=== PATIENT | female | born 1965 | race Two or more races ===

== ENCOUNTER 2017-09-23 20:40 | Emergency (ER) | payer OTHER, SELFPAY ==
[2017-09-23 20:42] VITALS: BP 132/95; PULSE 68; RESP 18; TEMP 36.3; O2SAT 97; BMI 26.0
--- NOTE | 2017-09-23 21:21 | RAD_ITS ---
STUDY: X-RAY CHEST REASON FOR EXAM: Female, 52 years old. Chest tightness and anxiety TECHNIQUE: Single view of the chest was obtained COMPARISON: None. FINDINGS: No lung consolidation, pleural effusion or pneumothorax. Cardiac size is within normal limits. Osseous structures demonstrate no acute abnormalities. IMPRESSION: No evidence for focal airspace disease. Electronically Signed: Manuel Loredo, at 21:37 EDT Tel , Service support , RAD/Chest 1 View (Portable)
--- NOTE | 2017-09-23 21:22 | EKG12_ITS ---
Test Reason : CHEST TIGHTNESS Blood Pressure : / mmHG Vent. Rate : 071 BPM Atrial Rate : 071 BPM P-R Int : 140 ms QRS Dur : 074 ms QT Int : 398 ms P-R-T Axes : 043 029 050 degrees QTc Int : 432 ms Normal sinus rhythm Normal ECG Confirmed by GORDON VÁZQUEZ, ADY ([id number]), writer editor VALDEMAR MARTINEZ ([id number]) on 09/25/2017 10:15:04 AM Referred By: KARLA Confirmed By:ADY LEYVA MD
[2017-09-23 21:44] VITALS: BP 123/78; PULSE 63; RESP 17; O2SAT 97
[2017-09-23 21:49] LABS: Absolute Lymphocyte Count 2.22 X10^3/ul (0.83-4.51); Basophil# 0.06 X10^3/uL; Basophil% 0.8 % (0-1); Eosinophil# 0.11 X10^3/uL; Eosinophils% 1.6 % (0-5); Hematocrit 37.5 % (37-47); Hemoglobin 12.8 g/dl (12.0-15.0); Lymphocyte # 2.22 X10^3/ul (4.0); Lymphocyte % 31.4 % (19-41); Mean Corp Hgb Conc 34.1 g/gl (32-36); Mean Corpuscular Hgb 30.2 pg (27.0-32.0); Mean Corpuscular Volume 88.4 fL (81-99); Monocyte# 0.68 X10^3/uL; Monocyte% 9.6 % (0-10); Neutrophil # 3.98 X10^3/uL (2.7-7.7); Neutrophil % 56.3 % (47-70); Platelet Count 153 K/mm3 (150-450); RBC Distribution Width CV 13.1 % (11.6-14.6); RBC Distribution Width SD 41.9 fl (35.1-43.9); Red Blood Count 4.24 M/mm3 (4.2-5.4); White Blood Count 7.1 K/mm3 (4.4-11.0)
[2017-09-23 21:50] LABS: POSITIVE COUNT NO; POSITIVE DIFFERENTIAL NO; POSITIVE MORPHOLOGY NO
[2017-09-23] MEDS: 0.9% Normal Saline 1,000 ML 150 ML IV (21:51)
[2017-09-23] MEDS: hydrOXYzine PAM 25 MG Capsule PO ×4 (21:52→23:09)
[2017-09-23 22:09] LABS: AST(SGOT) 29 U/L (15-37); Alanine Aminotransfer ALT/SGPT 42 U/L (13-56); Albumin, Serum 3.5 g/dL (3.2-5.0); Alkaline Phosphatase 87 U/L (45-117); Anion Gap 11 (5-15); BUN 10 mg/dL (7-18); BUN/Creat Ratio 13.6 RATIO (10-20); Bilirubin, Direct 0.19 mg/dL (0.00-0.30); Calcium,Total 8.6 mg/dL (8.5-10.1); Chloride 101 mmol/L (98-107); Creatinine, Serum 0.74 mg/dL (0.55-1.02); EST Glomerular Filtration Rate 88 mL/min (>60); Est Glom Filt Rate - Afr Amer 106 mL/min (>60); Estimated Creatinine Clearance 67.11 ml/min; Globulin 4.5 g/dL (2.2-4.2); Glucose 83 mg/dL (74-106); Lipase 83 U/L (73-393); Potassium 3.5 mmol/L (3.5-5.1); Sodium Level 135 mmol/L (136-145)
[2017-09-23 22:15] VITALS: BP 127/102; PULSE 64; O2SAT 98
--- NOTE | 2017-09-23 22:50 | ED.VISSUMM ---
- ER Visit Summary Date of Service: 09/23/17 Chief Complaint: Anxiety, chest pain History of Present Illness: The patient is a 52 F reports worsening anxiety recently. This is been ongoing for several weeks. She states she is currently going through divorce which is making her symptoms worse. Her primary care physician through the [place] has her on clonidine, but she states this is not helping. She reports chest tightness and upper abdominal pain all day today. She has no significant cardiac history. Physical Examination: Vital signs unremarkable. Patient sitting upright in bed. Head neck examination is unremarkable. Heart is regular rate and rhythm. Lung sounds are clear. There is no reproducible chest wall tenderness. Abdomen is soft nontender. Lower extremity examination was no calf tenderness or edema. Test Results: EKG is sinus at 71 with no acute ischemia. Portable chest x-ray shows no focal disease. CBC and chemistry studies normal. LFTs and lipase are normal. Troponin is negative. Emergency Department Course and Treatment: Patient was observed on manager generation without significant arrhythmia. She was given p.o. Vistaril. On repeat evaluation patient states that she is much more relaxed and does feel better. She will be discharged with a prescription for Vistaril and advised to follow-up with her doctor at [facility] as soon as possible. Treatment Plan: [] Disposition: Discharge Impression: Anxiety, improved This note was generated with [employer] dictation software. It may contain incorrect words, spelling, and punctuation that were not noted in review of the chart prior to signing ED Disposition - Plan for ED Patient: Chief Complaint: Chest Pain Referrals: [facility] [Primary Care Provider] -
--- NOTE | 2017-09-23 22:51 | ED.DEP ---
ED Disposition - Plan for ED Patient: Disposition: Home or Assisted Living Chief Complaint: Chest Pain Instructions: ED Stress React Prescriptions: hydrOXYzine pamoate capsule [Vistaril] 25 mg PO TID PRN PRN #20 capsule PRN Reason: Anxiety [facility] [facility] [[facility] [place]] - As soon as possible
[2017-09-23 23:09] VITALS: PULSE 65; RESP 18; O2SAT 98
== END 2017-09-23 23:10 | disposition home or self-care (01) ==
PROVIDERS: Emergency Provider Emergency Medicine
DX: F41.9 Anxiety disorder, unspecified (principal); R07.9 Chest pain, unspecified; R10.10 Upper abdominal pain, unspecified
CPT/HCPCS: 71045; 80048; 80076; 83690; 84484; 85025; 93005; 96360; 99285; J7030; A4216

== ENCOUNTER 2017-12-19 15:23 | Emergency (ER) | payer OTHER, SELFPAY ==
[2017-12-19 15:24] VITALS: BP 148/86; PULSE 75; RESP 14; TEMP 36.6; O2SAT 98; BMI 27.4
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
[2017-12-19 16:45] VITALS: BP 152/96
== END 2017-12-19 16:45 | disposition home or self-care (01) ==
PROVIDERS: Emergency Provider Emergency Medicine
DX: R42 Dizziness and giddiness (principal); S13.4XXA Sprain of ligaments of cervical spine, initial encounter; V89.2XXA Person injured in unspecified motor-vehicle accident, traffic, initial encounter; Y93.9 Activity, unspecified; Y92.9 Unspecified place or not applicable; Y99.9 Unspecified external cause status; I10 Essential (primary) hypertension
CPT/HCPCS: 70450; 99282

== ENCOUNTER 2019-01-07 06:32 | Emergency (ER) | payer OTHER, SELFPAY ==
[2018-03-11 09:53] VITALS: BMI 27.4
[2019-01-07 06:33] VITALS: BP 161/97; PULSE 100; RESP 18; TEMP 37; O2SAT 98; BMI 26.7
--- NOTE | 2019-01-07 07:02 | ED.DCSUM_ITS ---
History of Present Illness Chief Complaint: Anxiety Informant: Patient Onset: Weeks Context: Gradual Onset Conflict: Family, Financial Timing: Continuous, Waxes and wanes Current Severity: Moderate Maximum Severity: Severe Worsened by: Situational factors, - - Problems with . . lives in [place]. Has been diagnosed with cancer and refusing treatment. Relieved by: Nothing Associated Symptoms: Change in Eating, Change in sleeping. Negative for: Depressed, Decreased Interest, Guilt, Decreased Concentration, Hopelessness, Suicidal Thoughts, Easily distracted, Grandiosity, Flight of Ideas, Increased activity, Pressured Speech, Agitated, Angry, Hostile, Threatening, Confusion, Paranoia, Visual Hallucinations, Auditory Hallucinations Specific plan (suicidal thought): None Narrative: Patient is a middle-age woman who has been from her for greater than a year. He was diagnosed with skin cancer. He is refusing treatment. He apparently is not doing well. This past summer for 6 weeks she went to [place] to see him, discuss treatment options etc. She is seen by a physician at the [facility] in [place] for anxiety. She is treated with hydroxyzine, only. She has no suicidal thoughts. She does not feel depressed. She has been hospitalized for psychiatric reasons. She states she is having difficulty sleeping. She states she feels anxious. Her job limit s her availability to see her doctor. She states she drove herself to the emergency department. She lives in [place] because she has 2 daughters/relatives that live in the area. She reports she has 2 sons and they live in [place]. One is having a child and she is looking forward to visiting him. Prior similar symptoms: Yes Recent Illness/Hospitalization: No - Past Medical History (1) No significant past medical history Status: Acute Past Medical History - Allergies and Home Meds Allergies/Adverse Reactions: Allergies No Known Allergies Allergy (Verified 12/19/17 15:25) Primary Care Physician: [facility] [Primary Care Provider] - Prior records reviewed: Yes Past Medical History: None Surgical History: noncontributory Lives: - - Smoking Status: Never smoker Alcohol: Rare Drugs: None Review of Systems General: Denies: Chills, Fever, Malaise, Subjective, Sweats Eyes: Denies: Visual changes - bilaterally, Blurred Vision - bilaterally Cardiovascular: Denies: Chest pain, Palpitations Respiratory: Denies: Dyspnea, Cough, Sputum Gastrointestinal: Denies: Abdominal pain, Nausea, Vomiting Genitourinary: Denies: Dysuria, Hematuria, Frequency Psych: Reports: Depression, Anxiety. Denies: Suicidal thoughts, Suicidal ideations Physical Exam Vital Signs/Narrative: Vital Signs Temp Pulse Resp BP Pulse Ox 01/07/19 06:33 98.6 F 100 18 161/97 H 98 Inital Vital Signs reviewed: Yes General: Well nourished, Well developed, - - Patient appears tired Head: Normocephalic, Atraumatic Eyes: Perrl, EOMI. Negative for: Pale conjunctiva, Scleral icterus Neck: Supple, Nontender, No JVD Cardiovascular: Regular rate, Regular rhythm, No murmurs, Normal S1, Normal S2 Respiratory: No distress, CTA bilaterally, Chest nontender Skin: Normal color, No rash Neurological: Alert, Oriented x3, Cranial nerves II-XII grossly intact, Normal Strength, Normal Sensation Psych: Normal Speech Pattern, No suicidal or homicidal ideation, Normal Stable Appropriate Affect, Good Insight, Good Judgement, Flat Affect. Negative for: Logical sequential goal directed thoughts, Normal Appearance, Depressed, Irritable, Euphoric, Labile, Blunted Affect, Restricted Affect, Pressured Speech, Poverty of Speech, Flight of Ideas, Incoherent thoughts, Suicidal thoughts, Homicidal thoughts, Hallucinations, Delusions, Paranoid Ideation Diagnostic/Tx/Re-eval Past records were reviewed. Minimal visits. No visits for psychiatric reasons. Based on patient's history and lack of suicidal ideation or thoughts will treat with short course of Ativan. She was instructed the amount of medication I am able to give her is limited. She states she has been trying to contact her physician at the [facility] and will call at 8 AM. ED Disposition - Plan for ED Patient: Disposition: Home or Assisted Living Diagnosis: Adjustment reaction with anxiety and depression Instructions: Anxiety Reaction Prescriptions: Lorazepam [Ativan] 0.5 mg PO TID PRN 5 Days #15 tab PRN Reason: anxiety/stress Prescription Printed [facility] [facility] [[facility] [place]] - As soon as possible
== END 2019-01-07 07:23 | disposition home or self-care (01) ==
PROVIDERS: Emergency Provider Emergency Medicine
DX: F43.23 Adjustment disorder with mixed anxiety and depressed mood (principal); Z79.899 Other long term (current) drug therapy
CPT/HCPCS: 99282; A4216

== ENCOUNTER 2020-09-05 12:55 | Inpatient (IN) | payer OTHER, SELFPAY ==
[2020-09-05 12:56] VITALS: BP 135/90; RESP 18; TEMP 36.2; O2SAT 97; BMI 27.1
--- NOTE | 2020-09-05 13:13 | US_ITS ---
HISTORY: Epigastric pain TECHNIQUE: Rodriguez scale and color Doppler imaging was performed of the right upper quadrant. COMPARISON: None FINDINGS: # of images incl. paperwork: 71 LIVER: Normal size and echotexture without focal parenchymal lesion. Normal portal venous blood flow. GALLBLADDER: Unremarkable. BILE DUCTS: The extrahepatic common duct measures 3 mm in AP diameter, which is within normal limits for the patient's age. PANCREAS: No acute abnormality of the visualized portion. RIGHT KIDNEY: 10.8 cm long axis. No hydronephrosis. US/Gallbladder IMPRESSION: No sonographic evidence for an acute abnormality in the right upper quadrant. at 1542 Reported and signed by: Ray Darden MD Electronically Signed: Ray Darden MD at 15:41 EDT Tel , Service support ,
[2020-09-05] MEDS: Metoclopramide 10 MG/2 ML Vial IV (13:38)
[2020-09-05] MEDS: Mag Hydrox/Al Hydrox/Simeth 30 ML UDC PO (13:41)
[2020-09-05 13:47] LABS: Absolute Lymphocyte Count 0.73 X10^3/uL (0.83-4.51); Absolute Neutrophil Count 8.5 X10^3/uL (2.0-7.7); Basophil# 0.05 X10^3/uL; Basophil% 0.4 % (0-1); Eosinophil# 1.14 X10^3/uL; Hematocrit 41.9 % (37-47); Hemoglobin 14.2 g/dL (12.0-15.0); Lymphocyte # 0.73 X10^3/ul (0.83-4.51); Lymphocyte % 6.4 % (19-41); Mean Corp Hgb Conc 33.9 g/dL (32-36); Mean Corpuscular Hgb 30.9 pg (27.0-32.0); Mean Corpuscular Volume 91.1 fL (81-99); Mean Platelet Vol. 10.3 fl (6.2-12.0); Monocyte# 0.95 X10^3/uL; Monocyte% 8.3 % (0-10); NRBC Flagged by Analyzer 0 % (0-5); Neutrophil # 8.49 X10^3/uL (2.7-7.7); Neutrophil % 74.5 % (47-70); POSITIVE MORPHOLOGY YES; Platelet Count 165 K/mm3 (150-450); RBC Distribution Width CV 13.2 % (11.6-14.6); RBC Distribution Width SD 43.9 fl (35.1-43.9); White Blood Count 11.4 K/mm3 (4.4-11.0)
[2020-09-05 13:53] LABS: Differential Indicated SCAN CRITERIA MET
[2020-09-05 14:08] LABS: ALB/GLOB Ratio 0.8 RATIO (0.9-2.4); AST(SGOT) 46 U/L (15-37); Alanine Aminotransfer ALT/SGPT 31 U/L (13-56); Albumin, Serum 3.9 g/dL (3.2-5.0); Alkaline Phosphatase 79 U/L (45-117); Anion Gap 15 (5-15); BUN 10 mg/dL (7-18); BUN/Creat Ratio 9.3 RATIO (10-20); Chloride 98 mmol/L (98-107); Creatinine, Serum 1.08 mg/dL (0.55-1.02); EST Glomerular Filtration Rate 56 mL/min (>60); Est Glom Filt Rate - Afr Amer 68 mL/min (>60); Estimated Creatinine Clearance 44.41 ml/min; Globulin 4.8 g/dL (2.2-4.2); Glucose 199 mg/dL (74-106); Lipase 4411 U/L (73-393); Potassium 4.9 mmol/L (3.5-5.1); Protein, Total 8.7 g/dL (6.4-8.2); Sodium Level 134 mmol/L (136-145)
[2020-09-05] MEDS: HYDROmorphone 0.5 MG/0.5 ML SYRINGE IV ×4 (15:06→23:32)
--- NOTE | 2020-09-05 15:11 | CT_ITS ---
STUDY: CT ABDOMEN AND PELVIS WITH CONTRAST REASON FOR EXAM: Female, 55 years old. Pancreatitis RADIATION DOSAGE (If Supplied By Facility): CTDIvol = ( 11.69 ) mGy, DLP = ( 707.34 ) mGycm TECHNIQUE: Transaxial images were obtained from the dome of the diaphragm to the symphysis pubis without oral contrast. was administered. Sagittal and coronal images were reconstructed. Individualized dose optimization techniques were used for this CT. COMPARISON: None. FINDINGS: The visualized lung bases are unremarkable. The visualized portions of the heart are within normal limits. Normal liver. Normal gallbladder and extrahepatic biliary system. Normal spleen. There is diffuse enlargement of the pancreas with mirella-pancreatic edema suggesting acute pancreatitis. No focal abscess. Normal bilateral adrenal glands. Normal right kidney. Normal left kidney. Normal visualized stomach. Mild wall thickening of the proximal duodenum with adjacent stranding could represent primary or secondary duodenitis. Normal colon. The appendix is visualized and appears normal. Normal abdominal aorta. Normal inferior vena cava. Normal retroperitoneum. Normal urinary bladder. Normal visualized uterus. Trace pelvic free fluid. Normal abdominal wall. Normal osseous structures. CT/Abdomen/Pelvis W IV Cont ONLY IMPRESSION: 1. Diffuse acute pancreatitis. No focal abscess or fluid collection. Primary or secondary duodenitis. Electronically Signed: Liam Evans MD ([place]) at 17:16 EDT , Service support ,
--- NOTE | 2020-09-05 15:14 | ED.VIS.GI ---
HPI HPI - GI History of Present Illness Chief Complaint: Abd Pain Narrative Narrative: Patient presenting for evaluation secondary to abdominal pain. Patient states that she developed abdominal pain earlier today, its been associated with nausea and vomiting. Patient reports that she feels that this could be associated with her anxiety, but does not feel that there is been anything in particular that caused her anxiety to spike. She is on as needed hydroxyzine which has not seemed to be helping. States that she has been having episodes of emesis and has been having some difficulty with keeping down fluids. Emesis is nonbloody nonbilious she denies any diarrhea or constipation associated with this. She denies any history of abdominal surgeries in the past. No fevers. No sick contacts. Review of systems otherwise negative. PFSH PFS Medical History Anxiety Home Medications hydroxyzine pamoate 50 mg PO DAILY PRN PRN 01/07/19 [History Last Taken 01/07/19] omeprazole 20 mg PO BID 09/05/20 [History Last Taken 09/05/20] Allergy/AdvReac Type Severity Reaction Status Date / Time No Known Allergies Allergy Verified 09/05/20 12:56 Surgical History H/O tubal ligation Social History Smoking Status: Never smoker ROS ROS ED Constitutional Constitutional ED: Denies chills or fever(s) ENT ENT ED: Denies sore throat Cardiovascular Cardiovascular: Denies chest pain Respiratory/Chest Respiratory/Chest: Denies cough or dyspnea Gastrointestinal Gastrointestinal: Reports abdominal pain, nausea and vomiting Genitourinary Genitourinary ED: Denies dysuria, hematuria or urinary frequency Musculoskeletal Musculoskeletal: Denies myalgias Integumentary Denies rash Neurologic Neurologic: Denies paresthesias or weakness Psychiatric Psychiatric: Reports anxiety Endocrine Endocrinology: Denies polyuria Hematologic/Lymphatic Hematologic/Lymphatic: Denies easy bleeding or easy bruising Allergic/Immunologic Allergic/Immunologic ED: Denies urticaria EXAM Physical Exam Const Vital Signs: 09/05/20 12:56 Temperature 97.2 F L Temperature Source Temporal Respiratory Rate 88 H Blood Pressure 135/9 H Blood Pressure Mean 51 Pulse Ox 97 Oxygen Delivery Method Room Air Positive well nourished and well developed General Appearance ED: well developed and NAD HEENT normocephalic and atraumatic Eyes EOMs intact bilaterally General Eye ED: Negative for pale conjunctiva or scleral icterus Neck no lymphadenopathy and supple Resp normal respiratory effort and clear to auscultation bilaterally Cardio regular rate, regular rhythm, no murmurs and peripheral pulses 2+ throughout GI no masses Palpation: soft and tender epigastric and RUQ; Negative for guarding, rigid or rebound tenderness present Back/Spine no CVA tenderness Extremity full ROM General Extremety ED: Negative for edema General Extremity: Negative for edema Neuro moves all extremities and no sensory deficits noted Sensorium / Orientation: alert, oriented to person, oriented to place and oriented to time Motor Exam: strength 5/5 throughout Psych mental status grossly normal Skin Rashes: no rashes MDM MDM MDM Narrative Medical decision making narrative: Patient presented for evaluation secondary to abdominal pain nausea and vomiting. Patient attributed this mainly to her anxiety but she does have reproducible tenderness in her epigastrium and right upper quadrant, work-up was obtained. Patient was given a GI cocktail initially as well as fluids and Zofran. Work-up shows the patient have a modest leukocytosis at 11.4, chemistry panel however shows the patient to have a slight elevation of her AST and an elevation of her lipase at 4400. Right upper quadrant ultrasound was performed, by my personal review does not seem to show evidence of cholecystitis or pathologic dilation of the patient's gallbladder duct. Patient was started on fluid resuscitation and IV pain medication. Patient will be admitted under the hospitalist. Lab Data Labs: Laboratory Results - last 24 hr 09/05/20 09/05/20 13:42 13:42 WBC 11.4 H RBC 4.60 Hgb 14.2 Hct 41.9 MCV 91.1 MCH 30.9 MCHC 33.9 RDW Std Deviation 43.9 RDW Coeff of [place] 13.2 Plt Count 165 MPV 10.3 Immature Gran % (Auto) 0.400 Neut % (Auto) 74.5 H Lymph % (Auto) 6.4 L Carbon % (Auto) 8.3 Eos % (Auto) 10.0 H Baso % (Auto) 0.4 Absolute Neuts (auto) 8.5 H Absolute Lymphs (auto) 0.73 L Nucleated RBC % 0 Sodium 134 L Potassium 4.9 Chloride 98 Carbon Dioxide 21.0 Anion Gap 15 BUN 10 Creatinine 1.08 H Estim Creat Clear Calc 44.41 Est GFR (MDRD) Af Amer 68 Est GFR (MDRD) Non-Af 56 L BUN/Creatinine Ratio 9.3 L Glucose 199 H Calcium 9.0 Total Bilirubin 0.80 AST 46 H ALT 31 Alkaline Phosphatase 79 Total Protein 8.7 H Albumin 3.9 Globulin 4.8 H Albumin/Globulin Ratio 0.8 L Lipase 4411 H Discharge Plan Triage Chief Complaint: Abd Pain ED Provider: Jonathon Wolf Dx/Rx/DC Orders Clinical Impression: Acute pancreatitis Primary Care Provider[facility] Disposition Disposition: Acute Care [facility]
[2020-09-05] MEDS: 0.9% Normal Saline 1,000 ML 250 ML IV (15:26)
--- NOTE | 2020-09-05 15:43 | PCM.HP.STD ---
Documented by User: Jessica Callaway NP, RECONDITIONER-C 09/05/20 16:14 HPI - General General Date of Admission: 09/05/20 Date of Service: 09/05/20 Chief Complaint: Nausea, vomiting, abdominal pain HPI Narrative JESUS GAMEZ, is a 55 F who presents to the emergency room due to nausea, vomiting and abdominal pain. Patient states she has anxiety at baseline and last night had significant anxiety and caused her to worry even more, she then developed nausea and vomiting. Patient states she has had similar episodes in the past with GI symptoms related to anxiety. She complains of epigastric and right-sided abdominal pain which she has not had prior. She denies alcohol use. Denies other recent symptoms. She has a past medical history of anxiety, GERD. [facility] Medical History Anxiety Home Medications hydroxyzine pamoate 25 mg PO BID 01/07/19 [History Last Taken 09/05/20] melatonin 10 mg PO QHS 09/05/20 [History Last Taken Unknown] omeprazole 20 mg PO BID 09/05/20 [History Last Taken 09/05/20] Allergy/AdvReac Type Severity Reaction Status Date / Time No Known Allergies Allergy Verified 09/05/20 12:56 Family History (Updated 09/05/20 @ 15:51 by Jessica Callaway NP, RECONDITIONER-C) Father Alcohol abuse Mother Cancer Uterine Surgical History H/O tubal ligation Social History (Updated 09/05/20 @ 15:52 by Jessica Callaway NP, RECONDITIONER-C) Smoking Status: Never smoker alcohol intake: former substance use type: does not use ROS Constitutional Constitutional: Denies change in weight, chills, fatigue, fever(s) or weakness Cardiovascular Cardiovascular: Denies chest pain, edema, lightheadedness, palpitations or syncope Respiratory/Chest Respiratory/Chest: Denies cough, dyspnea, productive cough, shortness of breath at rest, shortness of breath with exertion or wheezing Gastrointestinal Gastrointestinal: Reports abdominal pain, nausea and vomiting; Denies constipation or diarrhea Genitourinary Genitourinary: Denies burning urination, difficulty urinating, dysuria, hematuria, urinary frequency, urinary incontinence or urinary urgency Musculoskeletal Musculoskeletal: Denies back pain, joint pain or muscle weakness Integumentary Integumentary: Denies erythema, lesions, rash or wounds Neurologic Neurologic: Denies abnormal speech, confusion, dizziness, focal weakness, numbness, paresthesias, seizure-like activity or syncope Psychiatric Psychiatric: Reports anxiety; Denies depression Hematologic/Lymphatic Hematologic/Lymphatic: Denies anemia, easy bleeding or easy bruising Allergic/Immunologic Allergic/Immunologic: Denies hives or asthma Vital Signs Vital Signs Vital Signs: 09/05/20 12:56 Temperature 97.2 F L Temperature Source Temporal Respiratory Rate 88 H Blood Pressure 135/9 H Blood Pressure Mean 51 Pulse Ox 97 Oxygen Delivery Method Room Air Weight Weight: 143 lb 8.335 oz Body Mass Index (BMI) 27.1 Physical Exam Const alert, oriented x3 and no apparent distress Orientation / Consciousness: awake, oriented to person, oriented to place and oriented to time HEENT normocephalic and moist oral mucous membranes Eyes PERRL, EOMs intact bilaterally and conjunctivae normal Neck no lymphadenopathy Resp normal respiratory effort and clear to auscultation bilaterally Cardio regular rate, regular rhythm and no murmurs Peripheral Pulses: pulses 2+ throughout GI normal to inspection, nondistended, normoactive bowel sounds and non-distended Palpation: tender epigastric and RUQ Extremity normal to inspection Skin no rashes or lesions noted Lesions: no lesions Rashes: no rashes Trauma: no lacerations or abrasions Neuro CN's II-XII intact bilaterally, no focal motor deficits, no sensory deficits noted and deep tendon reflexes 2+ bilaterally Psych mental status grossly normal and affect normal Results Lab / Micro Data Result Diagrams: 09/05/20 13:42 09/05/20 13:42 Labs: Laboratory Results - last 24 hr 09/05/20 13:42: WBC 11.4 H, RBC 4.60, Hgb 14.2, Hct 41.9, MCV 91.1, MCH 30.9, MCHC 33.9, RDW Std Deviation 43.9, RDW Coeff of [place] 13.2, Plt Count 165, MPV 10.3, Immature Gran % (Auto) 0.400, Neut % (Auto) 74.5 H, Lymph % (Auto) 6.4 L, Rowan % (Auto) 8.3, Eos % (Auto) 10.0 H, Baso % (Auto) 0.4, Absolute Neuts (auto) 8.5 H, Absolute Lymphs (auto) 0.73 L, Nucleated RBC % 0 09/05/20 13:42: Sodium 134 L, Potassium 4.9, Chloride 98, Carbon Dioxide 21.0, Anion Gap 15, BUN 10, Creatinine 1.08 H, Estim Creat Clear Calc 44.41, Est GFR (MDRD) Af Amer 68, Est GFR (MDRD) Non-Af 56 L, BUN/Creatinine Ratio 9.3 L, Glucose 199 H, Calcium 9.0, Total Bilirubin 0.80, AST 46 H, ALT 31, Alkaline Phosphatase 79, Total Protein 8.7 H, Albumin 3.9, Globulin 4.8 H, Albumin/Globulin Ratio 0.8 L, Lipase 4411 H Assessment & Plan Assessment/Plan (1) Acute pancreatitis: PLAN: 1. Acute pancreatitis-lipase greater than 4000. Gallbladder ultrasound unremarkable. CT of abdomen pending. IV fluids. NPO. As needed pain regimen. Check lipid profile. 2. Anxiety-on hydroxyzine PRN. 3. GERD-continue ppi. DVT prophylaxis- SCDs This patient was seen by Jessica Callaway NP-C under the supervision of Dr. Guan. Documented by User: Dr. Monica Guan DO 09/05/20 18:01 HPI - General General Date of Admission: 09/05/20 Date of Service: 09/05/20 Chief Complaint: Abdominal pain HPI Narrative This patient was seen in conjunction with Jessica Callaway NP [facility] Medical History Anxiety Home Medications hydroxyzine pamoate 25 mg PO BID 01/07/19 [History Last Taken 09/05/20] melatonin 10 mg PO QHS 09/05/20 [History Last Taken Unknown] omeprazole 20 mg PO BID 09/05/20 [History Last Taken 09/05/20] Allergy/AdvReac Type Severity Reaction Status Date / Time No Known Allergies Allergy Verified 09/05/20 12:56 Family History (Updated 09/05/20 @ 15:51 by Jessica Callaway RECONDITIONER, RECONDITIONER-C) Father Alcohol abuse Mother Cancer Uterine Surgical History H/O tubal ligation Social History (Updated 09/05/20 @ 15:52 by Jessica Callaway NP, RECONDITIONER-C) Smoking Status: Never smoker alcohol intake: former substance use type: does not use ROS Constitutional Constitutional: Reports anorexia; Denies change in weight, chills, fatigue, fever(s), malaise, night sweats, weakness or other Eyes Eyes: Denies blurry vision, change in eye color, change in vision, discharge from eye(s), double vision, erythema, eye pain, loss of vision or other Cardiovascular Cardiovascular: Denies chest pain, claudication, dyspnea on exertion, edema, lightheadedness, orthopnea, palpitations, paroxysmal nocturnal dyspnea, rapid heart rate, syncope or other Respiratory/Chest Respiratory/Chest: Denies cough, dyspnea, excessive phlegm production, hemoptysis, productive cough, shortness of breath at rest, shortness of breath with exertion, wheezing or other Gastrointestinal Gastrointestinal: Reports abdominal pain and nausea; Denies coffee ground emesis, constipation, diarrhea, dyspepsia, hematemesis, hematochezia, loose stools, melena, vomiting or other Genitourinary Genitourinary: Denies burning urination, difficulty urinating, dysuria, hematuria, nocturia, urinary frequency, urinary hesitancy, urinary incontinence, urinary urgency or other Musculoskeletal Musculoskeletal: Denies arthralgias, back pain, joint pain, joint stiffness, joint swelling, myalgias, neck pain or other Neurologic Neurologic: Denies abnormal gait, abnormal speech, confusion, disequilibrium, dizziness, focal weakness, headache(s), numbness, paresthesias, seizure-like activity, seizures, syncope, tingling, tremor(s) or other Psychiatric Psychiatric: Denies anxiety, depression, homicidal ideation, suicidal ideation or other Endocrine Endocrinology: Denies change in body appearance, cold intolerance, excessive sweating, heat intolerance, polydipsia, polyuria or other Hematologic/Lymphatic Hematologic/Lymphatic: Denies anemia, easy bleeding, easy bruising, lymphadenopathy or other Allergic/Immunologic Allergic/Immunologic: Denies rhinitis, hives, eczemia, asthma or other Physical Exam Const alert, oriented x3 and no apparent distress Constitutional Narrative: Middle-aged white female sitting up in bed, appears comfortable, nontoxic, friend at bedside General Appearance: cooperative HEENT normocephalic, head/scalp atraumatic, hearing grossly normal bilaterally and moist oral mucous membranes Eyes PERRL, EOMs intact bilaterally and conjunctivae normal Neck no lymphadenopathy, supple and no carotid bruits Neck Narrative: Trachea midline, thyroid of normal size without nodules noted on exam Resp normal respiratory effort, no retractions, no use of accessory muscles and clear to auscultation bilaterally Auscultation: Negative for crackles, rales, rhonchi or wheezes Cardio regular rate, regular rhythm, S1 normal heart sound, S2 normal heart sound, no murmurs, no rub, no gallops, no clicks and no JVD GI normal to inspection, nondistended, normoactive bowel sounds, soft to palpation and non-distended Palpation: tender epigastric and LUQ Extremity normal to inspection and no clubbing, cyanosis or edema Peripheral Pulses: Yes pulses 2+ throughout Neuro oriented x3 and moves all extremities Sensorium / Orientation: awake and alert Speech: speech normal Psych affect normal Results Lab / Micro Data Attestation: I reviewed the patient's lab results. Result Diagrams: 09/05/20 13:42 09/05/20 13:42 Assessment & Plan Assessment/Plan (1) Acute pancreatitis: (2) Hyponatremia: (3) Creatinine elevation: (4) Elevated blood pressure reading: PLAN: Assessment: Acute pancreatitis-etiology unknown Leukocytosis-mild Hyponatremia-mild Serum creatinine elevation without JUDITH-mild Duodenitis Anxiety Plan: -CT of the abdomen pelvis is consistent with acute pancreatitis and suggestive of mild duodenitis secondary versus primary -Aggressive hydration with normal saline 150 cc/h -N.p.o. -Pain management with Dilaudid 0.5 mg IV push every 4 hours as needed -Check lipids -Gallbladder ultrasound is unremarkable -PPI twice daily given duodenitis on scan -Would reevaluate symptoms in a.m. and if improved start clear liquids Charges/Coding Visit Charges Inpatient E&M: 22751 Subs Hosp L2
[2020-09-05 16:20] VITALS: BP 154/101; PULSE 87; RESP 16; TEMP 36.6; O2SAT 96
[2020-09-05 17:00] VITALS: BMI 27.1
[2020-09-05 17:20] VITALS: BP 152/104; PULSE 85; RESP 20; TEMP 36.7; O2SAT 100
[2020-09-05] MEDS: 0.9% Normal Saline 1,000 ML 150 ML IV ×2 (17:43→19:13)
[2020-09-05 18:23] LABS: Amphetamine Urine VISTA NEGATIVE (<1000 ng/mL); Barbiturate Urine VISTA NEGATIVE (< 200 ng/mL); Benzodiazepine Urine VISTA NEGATIVE (< 200 ng/mL); Cocaine Urine VISTA NEGATIVE (< 300 ng/mL); Ecstacy Urine VISTA NEGATIVE (< 500 ng/mL); Methadone Urine VISTA NEGATIVE (< 300 ng/mL); PCP Urine VISTA NEGATIVE (< 25 ng/mL); THC Urine VISTA NEGATIVE (< 50 ng/mL); Vista UDS pH Range 6
[2020-09-05] MEDS: Ondansetron 4 MG/2 ML Vial IV (19:13)
[2020-09-05 21:53] VITALS: BP 149/95; PULSE 87; RESP 17; TEMP 36.6; O2SAT 95
[2020-09-05] MEDS: Pantoprazole Sodium 20 MG Tablet PO (22:01)
[2020-09-05] MEDS: busPIRone 5 MG Tablet 10 MG PO (23:33)
[2020-09-05] MEDS: MELATONIN 3 MG TABLET PO (23:33)
[2020-09-06] MEDS: 0.9% Normal Saline 1,000 ML 150 ML IV ×4 (02:09→22:04)
[2020-09-06 02:12] VITALS: BP 130/84; PULSE 94; RESP 16; TEMP 36.8; O2SAT 96
[2020-09-06] MEDS: HYDROmorphone 0.5 MG/0.5 ML SYRINGE IV ×4 (04:28→18:52)
[2020-09-06] MEDS: 0.9% Saline Lock 10 ML Syringe IV (04:28)
[2020-09-06 06:13] LABS: Cholesterol 177 mg/dL (200); High Density Lipoprotein 68 mg/dL; Triglycerides 91 mg/dL; Very Low Density Lipoprotein 18 mg/dL (5-40)
[2020-09-06 09:00] VITALS: BP 128/73; PULSE 80; RESP 18; TEMP 37.3; O2SAT 97
[2020-09-06] MEDS: busPIRone 5 MG Tablet 10 MG PO ×2 (09:16→21:05)
[2020-09-06] MEDS: Pantoprazole Sodium 20 MG Tablet PO (09:21)
--- NOTE | 2020-09-06 10:30 | CASEMGMT ---
RN JAIMEE Face to Face with patient for initial transition planning/care coordination assessment. RN CM introduced self and role at [facility]. Patient lying in bed, alert and oriented. Patient willing to participate in assessment and is able to answer all questions appropriately. Care providers, pharmacy, and demographics verified. Patient wishes to discharge home, denies need for home health at this time. Patient states she has no further needs or concerns at this time. CM to follow for discharge planning needs that may arise. PCP: Nissa Mace CUSTOMER SUPPORT EXECUTIVE at [facility] Specialists: none Preferred Pharmacy: [facility] Insurance: [facility] Prescription Benefit: yes Living Will/HPOA: none LNOK: niece Living Arrangements: Patient lives with friend in a 3 story home with bed and bath on 3 level. Patient is independent and able to ambulate stairs. Transportation: self/friends DME/HHC: Patient denies DME or previous HHC. Disposition Plan: Patient to discharge home with family support and follow-up plans in place. Misti JOHNSTON, RN, CM
--- NOTE | 2020-09-06 12:11 | PN.HOSP_ITS ---
Documented by User: Jessica Callaway NP, VARSITY BASEBALL COACH-C 09/06/20 12:20 Subjective Subjective Patient seen and examined. Denies nausea, vomiting. States she slept well overnight. Continues to report epigastric discomfort. Objective Data Objective Data Vital Signs: Vital Signs Temp Pulse Resp BP Pulse Ox 99.2 F H 80 18 128/73 H 97 09/06/20 09:00 09/06/20 09:00 09/06/20 09:00 09/06/20 09:00 09/06/20 09:00 Oxygen Delivery Method Room Air Weight: 143 lb 8.335 oz Body Mass Index (BMI) 27.1 Intake & Output: Intake and Output for Last 24 Hours 09/04/20 09/05/20 09/06/20 23:59 23:59 23:59 Intake Total 1121.67 / 1171.67 2125 / 2125 Output Total 200 / 400 500 / 500 Balance 921.67 / 771.67 1625 / 1625 Medical Nutrition Assessment Dietitian: Nutrition Therapy Diagnosis Start: 09/06/20 12:03 Freq: Status: Active Protocol: Document 09/06/20 12:03 (Rec: 09/06/20 12:03 [id number]) Nutrition Malnutrition Evidence of Malnutrition Exists No Intake Problem Inadequate Oral Intake Etiology r/t decreased appetite w/ GI dysfunction, nausea, emesis Signs/Symptoms as evidenced by pt report of not consuming any meals x3 days Status Active Problem Clinical Problem Unintended Weight Gain Etiology r/t physical inactivity Signs/Symptoms as evidenced by pt report of decreased physical activity and unintentional weight gain of 12#/9% x6 months. Status Active Problem Recommendation Dietitian Recommendations/Changes Recommend regular- fat restricted diet when medically appropriate. Recommend oral nutrition supplement (ensure clear) if intake fails at meals after diet is advanced. Lab / Micro Data Result Diagrams: 09/05/20 13:42 09/05/20 13:42 Labs: Laboratory Results - last 24 hr 09/05/20 13:42: WBC 11.4 H, RBC 4.60, Hgb 14.2, Hct 41.9, MCV 91.1, MCH 30.9, MCHC 33.9, RDW Std Deviation 43.9, RDW Coeff of [place] 13.2, Plt Count 165, MPV 10.3, Immature Gran % (Auto) 0.400, Neut % (Auto) 74.5 H, Lymph % (Auto) 6.4 L, [place] % (Auto) 8.3, Eos % (Auto) 10.0 H, Baso % (Auto) 0.4, Absolute Neuts (auto) 8.5 H, Absolute Lymphs (auto) 0.73 L, Nucleated RBC % 0 09/05/20 13:42: Sodium 134 L, Potassium 4.9, Chloride 98, Carbon Dioxide 21.0, Anion Gap 15, BUN 10, Creatinine 1.08 H, Estim Creat Clear Calc 44.41, Est GFR (MDRD) Af Amer 68, Est GFR (MDRD) Non-Af 56 L, BUN/Creatinine Ratio 9.3 L, Glucose 199 H, Calcium 9.0, Total Bilirubin 0.80, AST 46 H, ALT 31, Alkaline Phosphatase 79, Total Protein 8.7 H, Albumin 3.9, Globulin 4.8 H, A lbumin/Globulin Ratio 0.8 L, Lipase 4411 H 09/05/20 17:45: Urine Opiates Screen POSITIVE H, Urine Methadone Screen NEGAT KYLE, Ur Barbiturates Screen NEGATIVE, Ur Phencyclidine Scrn NEGATIVE, Ur Amphetamines Screen NEGATIVE, U Methamphetamin-MDMA NEGATIVE, U Benzodiazepines Scrn NEGATIVE, Urine Cocaine Screen NEGATIVE, U Cannabinoids Screen NEGATIVE, Ur Drug Screen Comment 09/06/20 05:14: Triglycerides 91, Cholesterol 177, LDL Cholesterol 91, VLDL Cholesterol 18, HDL Cholesterol 68 Radiography Diagnostic Testing: Radiology Impression Gallbladder Ultrasound 09/05/20 13:13 IMPRESSION: No sonographic evidence for an acute abnormality in the right upper quadrant. at 1542 Reported and signed by: Ray Darden MD Electronically Signed: Ray Darden MD at 15:41 EDT Tel , Service support , Abdomen/Pelvis CT 09/05/20 15:11 IMPRESSION: 1. Diffuse acute pancreatitis. No focal abscess or fluid collection. Primary or secondary duodenitis. Electronically Signed: Liam Evans MD ([place]) at 17:16 EDT , Service support , Physical Exam Const alert, oriented x3 and no apparent distress Orientation / Consciousness: awake, oriented to person, oriented to place and oriented to time HEENT normocephalic and moist oral mucous membranes Eyes PERRL, EOMs intact bilaterally and conjunctivae normal Neck no lymphadenopathy Resp normal respiratory effort and clear to auscultation bilaterally Cardio regular rate, regular rhythm and no murmurs Peripheral Pulses: pulses 2+ throughout GI normal to inspection, nondistended, normoactive bowel sounds and non-distended Palpation: tender epigastric and RUQ Extremity normal to inspection Skin no rashes or lesions noted Lesions: no lesions Rashes: no rashes Trauma: no lacerations or abrasions Neuro CN's II-XII intact bilaterally, no focal motor deficits, no sensory deficits noted and deep tendon reflexes 2+ bilaterally Psych mental status grossly normal and affect normal Assessment & Plan Assessment/Plan (1) Acute pancreatitis: PLAN: 1. Acute pancreatitis-lipase greater than 4000. Gallbladder ultrasound unremarkable. CT of abdomen shows diffuse acute pancreatitis and primary or secondary duodenitis. IV fluids. Lipid profile and tox screen unremarkable. Clear liquid diet. As needed pain regimen. IV PPI. 2. Anxiety-on hydroxyzine PRN. 3. GERD-continue ppi. DVT prophylaxis- SCDs This patient was seen by SU Waterman under the supervision of Dr. iY. Documented by User: Dr. Giovanni Yi MD 09/06/20 17:06 Objective Data Lab / Micro Data Result Diagrams: 09/05/20 13:42 09/05/20 13:42 Charges/Coding Addendum Addendum: Dr. Yi: I personally reviewed the chart and examined the patient, and agree with the above findings. 55-year-old female presents to the hospital with epigastric abdominal pain consistent with pancreatitis. She is a former drinker and says that she quit drinking about a month and a half ago, no gallbladder disease and her triglycerides are normal. Unsure as to the etiology of her pancreatitis however it does seem to be improving slightly so she was started on a clear liquid diet today and will advance as necessary. On admission lipase was over 4000. Continue with IV fluids for hydration. Visit Charges Inpatient E&M: 44222 Subs Hosp L2
--- NOTE | 2020-09-06 13:10 | CASEMGMT ---
SW met w/pt in room, spoke w/her regarding anxiety. Pt confirms struggles w/anxiety, she states she has a lot going on. Pt went on to explain that she lost her job as she was injured and was unable to lift things. Her car also broke down. Her health problems are also causing anxiety, which in turn seems to contribute to the health problems. Pt lives with an older couple and she states her home situation is good. She is from her for 3 years, he lives in [place]. They do not have any children. Support offered to pt as she spoke about her current life situations that are adding to her anxiety. We spoke about what may be helpful for her. Pt's insurance is through her , it's [employer] [place], so she sees a doctor there for anxiety, and speaks to Dr. Eran koo for support. Pt is open to additional resources. We spoke about coping mechanisms and ways to deal w/anxiety as well. We spoke about resources for food, she is open to this as well--as it could free up money for other things. Pt plans to reach out to her for money for the car repairs if needed. Pt states she plans to focus on getting healthier at present, and then plans to look for a job again. We also spoke about completing POA forms, pt would like additional information. SW gave pt information on local counseling agencies, [employer], local food pantries, grounding exercises for anxiety, and LW/POA forms. Pt thanked KATH for the information. SW remains available for any additional supportive needs. ERNESTO Villa
--- NOTE | 2020-09-06 14:41 | CHAPLAIN ---
Type of Pastoral Visit _x__ Initial Visit ___ Follow-up Visit ___ On-call Visit ___ General Patient Visit ___ Spiritual Assessment ___ Family Conference ___ Bereavement ___ Rapid Response ___ Code Blue ___ Other (describe below) Pastoral Care Referral From _x__ Patient ___ Family ___ Nurse ___ Physician ___ Plumber Pipe Fitting ___ Broker Assistant ___ Other (describe below) Sacrament/Intervention _x__ Active listening ___ Anointing ___ Zoroastrianism ___ Bereavement ___ Communion _x__ Mayra exploration ___ _x__ Life review _x__ Prayer ___ Reconciliation ___ Sacrament of Sick _x__ Supportive presence ___ Wedding ___ Other (describe below) Pastoral Comments
[2020-09-06 15:00] VITALS: BP 129/80; PULSE 75; RESP 16; TEMP 36.7; O2SAT 97
[2020-09-06 21:03] VITALS: BP 140/85; PULSE 76; RESP 16; TEMP 37.1; O2SAT 99
[2020-09-07] MEDS: HYDROmorphone 0.5 MG/0.5 ML SYRINGE IV ×4 (01:57→21:26)
[2020-09-07] MEDS: 0.9% Saline Lock 10 ML Syringe IV ×3 (01:57→21:26)
[2020-09-07 02:03] VITALS: BP 154/86; PULSE 78; RESP 16; TEMP 37.4; O2SAT 98
[2020-09-07] MEDS: 0.9% Normal Saline 1,000 ML 150 ML IV ×3 (04:37→18:29)
[2020-09-07 06:51] LABS: Absolute Lymphocyte Count 1.59 X10^3/uL (0.83-4.51); Absolute Neutrophil Count 4.1 X10^3/uL (2.0-7.7); Basophil# 0.06 X10^3/uL; Basophil% 0.9 % (0-1); Hematocrit 34.6 % (37-47); Hemoglobin 11.6 g/dL (12.0-15.0); Lymphocyte # 1.59 X10^3/ul (0.83-4.51); Lymphocyte % 24.2 % (19-41); Mean Corp Hgb Conc 33.5 g/dL (32-36); Mean Corpuscular Hgb 30.9 pg (27.0-32.0); Mean Corpuscular Volume 92.3 fL (81-99); Mean Platelet Vol. 10.4 fl (6.2-12.0); Monocyte# 0.62 X10^3/uL; Monocyte% 9.4 % (0-10); NRBC Flagged by Analyzer 0 % (0-5); Neutrophil # 4.08 X10^3/uL (2.7-7.7); Platelet Count 107 K/mm3 (150-450); RBC Distribution Width CV 12.8 % (11.6-14.6); RBC Distribution Width SD 43.2 fl (35.1-43.9); Red Blood Count 3.75 M/mm3 (4.2-5.4); White Blood Count 6.6 K/mm3 (4.4-11.0)
[2020-09-07 07:17] LABS: Anion Gap 7 (5-15); BUN 3 mg/dL (7-18); BUN/Creat Ratio 6.3 RATIO (10-20); Calcium,Total 7.6 mg/dL (8.5-10.1); Chloride 106 mmol/L (98-107); Creatinine, Serum 0.48 mg/dL (0.55-1.02); EST Glomerular Filtration Rate 143 mL/min (>60); Est Glom Filt Rate - Afr Amer 174 mL/min (>60); Estimated Creatinine Clearance 99.93 ml/min; Glucose 84 mg/dL (74-106); Potassium 2.9 mmol/L (3.5-5.1); Sodium Level 139 mmol/L (136-145)
[2020-09-07 08:00] VITALS: BP 145/93; PULSE 86; RESP 16; TEMP 37.5; O2SAT 97
[2020-09-07] MEDS: busPIRone 5 MG Tablet 10 MG PO ×2 (10:12→21:33)
--- NOTE | 2020-09-07 10:44 | PN.HOSP_ITS ---
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 Reports worsening abdominal discomfort she drinks fluids quickly. However, states she is very thirsty and hungry. Will attempt full liquid diet. She denies nausea, vomiting. Objective Data Objective Data Vital Signs: Vital Signs Temp Pulse Resp BP Pulse Ox 99.5 F H 86 16 145/93 H 97 09/07/20 08:00 09/07/20 08:00 09/07/20 08:00 09/07/20 08:00 09/07/20 08:00 Oxygen Delivery Method Room Air Weight: 143 lb 8.335 oz Body Mass Index (BMI) 27.1 Intake & Output: Intake and Output for Last 24 Hours 09/05/20 09/06/20 09/07/20 23:59 23:59 23:59 Intake Total 1121.67 / 1171.67 4602.5 / 4602.5 1392.5 / 1392.5 Output Total 200 / 400 1200 / 1200 1250 / 1250 Balance 921.67 / 771.67 3402.5 / 3402.5 142.5 / 142.5 Medical Nutrition Assessment Dietitian: Nutrition Therapy Diagnosis Start: 09/06/20 12:03 Freq: Status: Active Protocol: Document 09/06/20 12:03 (Rec: 09/06/20 12:03 AG [id number]) Nutrition Malnutrition Evidence of Malnutrition Exists No Intake Problem Inadequate Oral Intake Etiology r/t decreased appetite w/ GI dysfunction, nausea, emesis Signs/Symptoms as evidenced by pt report of not consuming any meals x3 days Status Active Problem Clinical Problem Unintended Weight Gain Etiology r/t physical inactivity Signs/Symptoms as evidenced by pt report of decreased physical activity and unintentional weight gain of 12#/9% x6 months. Status Active Problem Recommendation Dietitian Recommendations/Changes Recommend regular- fat restricted diet when medically appropriate. Recommend oral nutrition supplement (ensure clear) if intake fails at meals after diet is advanced. Lab / Micro Data Result Diagrams: 09/07/20 06:28 09/07/20 06:28 Labs: Laboratory Results - last 24 hr 09/07/20 06:28: WBC 6.6, RBC 3.75 L, Hgb 11.6 L, Hct 34.6 L, MCV 92.3, MCH 30.9, MCHC 33.5, RDW Std Deviation 43.2, RDW Coeff of [place] 12.8, Plt Count 107 L, MPV 10.4, Immature Gran % (Auto) 0.500, Neut % (Auto) 62.0, Lymph % (Auto) 24.2, [place] % (Auto) 9.4, Eos % (Auto) 3.0, Baso % (Auto) 0.9, Absolute Neuts (auto) 4.1, Absolute Lymphs (auto) 1.59, Nucleated RBC % 0 09/07/20 06:28: Sodium 139, Potassium 2.9 L, Chloride 106, Carbon Dioxide 26.0, Anion Gap 7, BUN 3 L, Creatinine 0.48 L, Estim Creat Clear Calc 99.93, Est GFR (MDRD) Af Amer 174, Est GFR (MDRD) Non-Af 143, BUN/Creatinine Ratio 6.3 L, Glucose 84, Calcium 7.6 L Physical Exam Const alert, oriented x3 and no apparent distress Orientation / Consciousness: awake, oriented to person, oriented to place and oriented to time HEENT normocephalic and moist oral mucous membranes Eyes PERRL, EOMs intact bilaterally and conjunctivae normal Neck no lymphadenopathy Resp normal respiratory effort and clear to auscultation bilaterally Cardio regular rate, regular rhythm and no murmurs Peripheral Pulses: pulses 2+ throughout GI normal to inspection, nondistended, normoactive bowel sounds and non-distended Palpation: tender epigastric and RUQ Extremity normal to inspection Skin no rashes or lesions noted Lesions: no lesions Rashes: no rashes Trauma: no lacerations or abrasions Neuro CN's II-XII intact bilaterally, no focal motor deficits, no sensory deficits noted and deep tendon reflexes 2+ bilaterally Psych mental status grossly normal and affect normal Assessment & Plan Assessment/Plan (1) Acute pancreatitis: PLAN: 1. Acute pancreatitis-lipase greater than 4000 on admission. Gallbladder ultrasound unremarkable. CT of abdomen shows diffuse acute pancreatitis and primary or secondary duodenitis. IV fluids. Lipid profile and tox screen unremarkable. Advance to full liquid diet. As needed pain regimen. IV PPI. Patient with slow improvement. 2. Anxiety-on buspirone, hydroxyzine PRN. 3. GERD-continue ppi. 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 Juancarlos moser. Documented by User: Dr. Giovanni Yi MD 09/07/20 12:59 Objective Data Lab / Micro Data Result Diagrams: 09/07/20 06:28 09/07/20 06:28 Charges/Coding Addendum Addendum: Dr. Yi: I personally reviewed the chart and examined the patient, and agree with the above findings. 55-year-old female presents to the hospital with epigastric abdominal pain consistent with pancreatitis. She is a former drinker and says that she quit drinking about a month and a half ago, no gallbladder disease and her triglycerides are normal. Unsure as to the etiology of her pancreatitis however it does seem to be improving slightly so she was started on a clear liquid diet today and will advance as necessary. On admission lipase was over 4000. Continue with IV fluids for hydration. 09/07/2020: Has some bloating today, and states that she has not had a bowel movement since Saturday. She is not complaining of significant discomfort though she does feel bloated and has pain if she drinks water too quickly. We will place her on a bowel regimen and increase her diet to a full liquid diet and see how well she tolerates. Visit Charges Inpatient E&M: 63070 Subs Hosp L2
[2020-09-07] MEDS: Polyethylene Glycol 3350 17 GM PACKET PO ×2 (11:20→21:32)
[2020-09-07] MEDS: Potassium Chloride 10mEq/100mL 10 MEQ/100 ML IV.SOLN. 100 MEQ IV BOLUS ×4 (12:10→16:46)
[2020-09-07 14:00] VITALS: BP 159/91; PULSE 86; RESP 18; TEMP 37.4; O2SAT 98
[2020-09-07 21:21] VITALS: BP 151/92; PULSE 90; RESP 18; TEMP 37.3; O2SAT 100
[2020-09-08] MEDS: 0.9% Normal Saline 1,000 ML 100 ML IV ×2 (02:25→15:02)
[2020-09-08 02:31] VITALS: BP 142/77; PULSE 75; RESP 16; TEMP 37.2; O2SAT 98
[2020-09-08 07:00] LABS: Anion Gap 7 (5-15); BUN 3 mg/dL (7-18); BUN/Creat Ratio 6.7 RATIO (10-20); Calcium,Total 7.8 mg/dL (8.5-10.1); Chloride 106 mmol/L (98-107); Creatinine, Serum 0.44 mg/dL (0.55-1.02); EST Glomerular Filtration Rate 155 mL/min (>60); Est Glom Filt Rate - Afr Amer 188 mL/min (>60); Estimated Creatinine Clearance 109.01 ml/min; Glucose 100 mg/dL (74-106); Sodium Level 139 mmol/L (136-145)
[2020-09-08 07:48] LABS: Magnesium 2.1 mg/dL (1.6-2.6); Phosphorus 2.2 mg/dL (2.5-4.9)
[2020-09-08 08:22] VITALS: BP 126/74; PULSE 72; RESP 16; TEMP 37.4; O2SAT 99
[2020-09-08 08:29] VITALS: PULSE 72; RESP 16; O2SAT 99
[2020-09-08] MEDS: busPIRone 5 MG Tablet 10 MG PO (09:21)
[2020-09-08] MEDS: Polyethylene Glycol 3350 17 GM PACKET PO (09:21)
[2020-09-08] MEDS: oxyCODONE 5 MG Tablet PO (10:43)
[2020-09-08] MEDS: Potassium Chloride Oral Tablet 20 MEQ PO (10:43)
[2020-09-08 12:55] VITALS: BP 125/74; PULSE 72; RESP 16; TEMP 37.2; O2SAT 99
[2020-09-08 12:57] VITALS: PULSE 72; O2SAT 99
--- NOTE | 2020-09-08 14:46 | NURSING ---
This RN reviewed SN charting
--- NOTE | 2020-09-08 14:49 | PCM.DC ---
Discharge Instructions Diet Discharge Diet: Low fat / Low cholesterol Activity Discharge Activity: Return to Normal Activity Dressing / Incision Call your doctor if you observe: Fever of 101 or Higher, Shortness of breath, Dizziness, Swelling in the ankles, Chest pain and Increased palpitations (irregular heartbeat) Follow Up Care Test Results: Test results from this visit will be discussed in further detail at your follow-up appointment, if applicable. Discharge Plan Admission Admit Date/Time: 09/05/20 16:14 Attending Provider: Giovanni Yi Primary Care Provider: [facility],[place] Instructions Patient Instructions: Pancreatitis Acute Dc, ED Pancreatitis Discharge Orders/Prescriptions Prescriptions: Continued hydroxyzine pamoate 25 MG capsule 25 mg PO BID PRN (Reason: Anxiety) RF: 0 melatonin 10 mg Tablet 10 mg PO QHS RF: 0 pantoprazole 40 mg Tablet,Delayed Release (Dr/Ec) 40 mg PO BID RF: 0 buspirone 10 mg Tablet 10 mg PO BID RF: 0 Referrals / Follow Up: [facility],[place] [Primary Care Provider] - Disposition Disposition (needs filled in before D/C Order can be placed): Home, Self Care
[2020-09-08 15:19] VITALS: BP 139/84; PULSE 69; RESP 18; TEMP 37.2; O2SAT 92
--- NOTE | 2020-09-08 16:02 | DS.PCM_ITS ---
Providers Date of Admission: 09/05/20 Primary Care Physician: [facility] Reason For Visit: PANCREATITIS Diagnosis Discharge Diagnosis (1) Acute pancreatitis: Status: Acute Code(s): K85.90 - Acute pancreatitis without necrosis or infection, unspecified Medications at Discharge Home Medications hydroxyzine pamoate 25 mg PO BID PRN 01/07/19 buspirone 10 mg PO BID 09/05/20 melatonin 10 mg PO QHS 09/05/20 pantoprazole 40 mg PO BID 09/05/20 Hospital Course Operations None Procedures None Summary of Care Provided Minutes Spent on Discharge: 40 Hospital Course: Per HPI: JESUS GAMEZ, is a 55 F who presents to the emergency room due to nausea, vomiting and abdominal pain. Patient states she has anxiety at baseline and last night had significant anxiety and caused her to worry even more, she then developed nausea and vomiting. Patient states she has had similar episodes in the past with GI symptoms related to anxiety. She complains of epigastric and right-sided abdominal pain which she has not had prior. She denies alcohol use. Denies other recent symptoms. She has a past medical history of anxiety, GERD. Hospital Course: 1. Acute pancreatitis of unknown etiology-she has improved with IV fluids and pain medication. She has been slowly advanced on her diet and she stated that she had a feeling of being bloated so she was started on a bowel regimen as well since she said that she had not had a bowel movement since Saturday. She had some significant improvement after she had 2 bowel movements yesterday and today states that she has a little bit of pain with food but nothing anywhere near when she had first come in. I discussed with her the possibility of discharge today and she would like to go home today. She did manage to eat lunch without any significant abdominal discomfort. I discussed with her that given her severe constipation and how this was affecting her pain I was hesitant to send her on any p.o. narcotics and that she could try ibuprofen or Tylenol [id number]. She is okay with this. Would continue her home medications for her anxiety as well her GERD. She did have a lipid panel obtained which showed a normal triglycerides, and there is no evidence of gallstones on her ultrasound, and CMP did not show evidence of a recently passed stone either. She does have a history of alcohol abuse and she states that she quit drinking about a month and a half ago. I do recommend that she follow-up with her PCP in 3 to 5 days for outpatient follow-up. She is also to stick to a low-fat diet and if she does have a recurrence of the pain she should present back to the hospital. This was all discussed with her prior to discharge. Physical Exam Const alert, oriented x3 and no apparent distress General Appearance: cooperative HEENT normocephalic and moist oral mucous membranes Eyes PERRL, EOMs intact bilaterally and conjunctivae normal Neck supple and no JVD Resp normal respiratory effort, no retractions, no use of accessory muscles and clear to auscultation bilaterally Auscultation: Negative for crackles, rales, rhonchi or wheezes Cardio regular rate, regular rhythm, S1 normal heart sound, S2 normal heart sound and no murmurs GI soft to palpation and non-distended; Negative for hepatosplenomegaly Palpation: tender epigastric (Minimal) Extremity no clubbing, cyanosis or edema Skin no rashes or lesions noted Neuro no focal motor deficits and no sensory deficits noted Psych affect normal Appearance: appropriate Weight / BMI Weight Weight: 143 lb 8.335 oz Body Mass Index (BMI) 27.1 ABG / Lab / Microbiology Data Result Diagrams: 09/07/20 06:28 09/08/20 05:50 Laboratory: Laboratory Results - last 24 hr 09/08/20 05:50: Sodium 139, Potassium 3.0 L, Chloride 106, Carbon Dioxide 26.0, Anion Gap 7, BUN 3 L, Creatinine 0.44 L, Estim Creat Clear Calc 109.01, Est GFR (MDRD) Af Amer 188, Est GFR (MDRD) Non-Af 155, BUN/Creatinine Ratio 6.7 L, Glucose 100, Calcium 7.8 L 09/08/20 05:50: Phosphorus 2.2 L, Magnesium 2.1 D/C Instructions Discharge Diet: Low fat / Low cholesterol Call your doctor if you observe: Fever of 101 or Higher, Shortness of breath, Dizziness, Swelling in the ankles, Chest pain and Increased palpitations (irregular heartbeat) Meaningful Use Info Meaningful Use Diagnoses (Choose all that apply): None applicable Discharge Plan Admission Admit Date/Time: 09/05/20 16:14 Attending Provider: Giovanni Yi Primary Care Provider: [facility],[place] Instructions Patient Instructions: Pancreatitis Acute Dc, ED Pancreatitis Discharge Orders/Prescriptions Prescriptions: Continued hydroxyzine pamoate 25 MG capsule 25 mg PO BID PRN (Reason: Anxiety) RF: 0 melatonin 10 mg Tablet 10 mg PO QHS RF: 0 pantoprazole 40 mg Tablet,Delayed Release (Dr/Ec) 40 mg PO BID RF: 0 buspirone 10 mg Tablet 10 mg PO BID RF: 0 Referrals / Follow Up[facility] [Primary Care Provider] - Disposition Disposition (needs filled in before D/C Order can be placed): Home, Self Care Charges/Coding Visit Charges Inpatient E&M: 79290 Disch Hosp
== END 2020-09-08 15:45 | disposition home or self-care (01) | DRG 439 ==
LOC: ED 15:07 → MS3 15:30
PROVIDERS: Nurse Practitioner Family; Admitting Provider Internal Medicine; Emergency Provider Emergency Medicine; Visit Provider Family Medicine
DX: K85.90 Acute pancreatitis without necrosis or infection, unspecified (principal); E87.1 Hypo-osmolality and hyponatremia; F41.9 Anxiety disorder, unspecified; K21.9 Gastro-esophageal reflux disease without esophagitis; Z79.899 Other long term (current) drug therapy
CPT/HCPCS: 36415; 74177; 76705; 80048; 80053; 80061; 80307; 83690; 83735; 84100; 85025; 99284; J7030; J7050; Q9967; A4216; J2405

== ENCOUNTER 2020-12-23 14:50 | Emergency (ER) | payer OTHER, SELFPAY ==
[2020-12-23 14:51] VITALS: BP 149/98; PULSE 87; RESP 16; TEMP 37; O2SAT 98; BMI 24.5
[2020-12-23 15:43] VITALS: BP 121/84; BP 122/94; BP 131/75; PULSE 76; PULSE 79; PULSE 88
[2020-12-23 15:51] LABS: Absolute Lymphocyte Count 2.13 X10^3/uL (0.83-4.51); Absolute Neutrophil Count 4.1 X10^3/uL (2.0-7.7); Basophil# 0.07 X10^3/uL; Eosinophil# 0.22 X10^3/uL; Hematocrit 42.3 % (37-47); Hemoglobin 14.1 g/dL (12.0-15.0); Lymphocyte # 2.13 X10^3/ul (0.83-4.51); Lymphocyte % 29.3 % (19-41); Mean Corp Hgb Conc 33.3 g/dL (32-36); Mean Corpuscular Hgb 30.4 pg (27.0-32.0); Mean Corpuscular Volume 91.2 fL (81-99); Mean Platelet Vol. 10.7 fl (6.2-12.0); Monocyte# 0.72 X10^3/uL; Monocyte% 9.9 % (0-10); NRBC Flagged by Analyzer 0 % (0-5); Neutrophil # 4.11 X10^3/uL (2.7-7.7); Neutrophil % 56.7 % (47-70); Platelet Count 181 K/mm3 (150-450); RBC Distribution Width SD 50.1 fl (35.1-43.9); Red Blood Count 4.64 M/mm3 (4.2-5.4); White Blood Count 7.3 K/mm3 (4.4-11.0)
[2020-12-23 16:00] LABS: Anion Gap 8 (5-15); BUN 9 mg/dL (7-18); Chloride 106 mmol/L (98-107); Creatinine, Serum 0.75 mg/dL (0.55-1.02); EST Glomerular Filtration Rate 85 mL/min (>60); Est Glom Filt Rate - Afr Amer 103 mL/min (>60); Estimated Creatinine Clearance 63.95 ml/min; Glucose 147 mg/dL (74-106); Potassium 3.6 mmol/L (3.5-5.1); Sodium Level 138 mmol/L (136-145)
--- NOTE | 2020-12-23 16:00 | EDS_ITS ---
HPI History of Present Illness Chief Complaint: Dizziness Detail of Chief Complaint: 1 minute of dizziness on Saturday and 2 minutes of dizziness on Informant: patient Onset/Context/Timing Onset: Yesterday and Days (Saturday as well) Context: Onset with activity and Sudden Onset Timing: Intermittent (1 to 2 minutes in duration) Quality: [place] as if I was going to pass out Current Severity: Gone Maximum Severity: Moderate Worsened by: None Relieved by: Nothing Associated Symptoms Associated Symptoms: Read HPI Narrative Narrative: Patient is a 55-year-old woman who was sent to the emergency room for evaluation of dizziness. She has a history of hypertension and pancreatitis. She had a episode of dizziness which she defines as lightheaded that lasted 1 minute duration while at work. She was standing for hours when this occurred. She felt as if she was going to fall. She denied headache, double vision, blurred vision or loss of vision. She denied decreased hearing, ringing or ears or drainage from ears. She denied rhinorrhea, congestion or postnasal drainage. She denies sore throat. She denied trouble with speech or swallowing. She denied neck or back pain. She denied cardiac or respiratory symptoms. She denied abdominal pain. She denied black or maroon-colored stool. She denied history of vomiting or diarrhea. She denies urologic symptoms. She denied paresthesia, anesthesia or motor weakness. She states the episode on was associated with a spinning sensation but she also reports a spinning sensation did not occur until she felt as if she was going to pass out. She denied being sweaty. The episode that occurred on occurred at work after standing for hours. She denied problems with coordination. The episode on she states her arms and legs shook but she had no loss of postural tone. Her physician was concerned that she had a seizure. Prior similar symptoms: No Recent Illness/Hospitalization: No [facility] Medical History Anxiety Home Medications hydroxyzine pamoate 25 mg PO BID PRN 01/07/19 [History Last Taken 09/05/20] buspirone 10 mg PO BID 09/05/20 [History Last Taken Unknown] pantoprazole 40 mg PO BID 09/05/20 [History Last Taken Unknown] Allergy/AdvReac Type Severity Reaction Status Date / Time No Known Allergies Allergy Verified 09/05/20 12:56 Family History Father Alcohol abuse Mother Cancer Uterine Surgical History H/O tubal ligation Social History (Updated 12/23/20 @ 16:[address] Trenton Schmid MD) household members: other Smoking Status: Never smoker alcohol intake: former substance use type: does not use ROS ROS ED Constitutional Constitutional ED: Denies chills, fever(s), subjective, sweats or weight loss Eyes Eyes: Denies blurry vision, change in vision or diplopia ENT ENT ED: Denies ear pain, rhinorrhea or sore throat Cardiovascular Cardiovascular: Denies chest pain, orthopnea, palpitations or racing heartbeat Respiratory/Chest Respiratory/Chest: Denies cough, dyspnea, dyspnea on exertion, orthopnea or sputum Gastrointestinal Gastrointestinal: Denies abdominal pain, constipation, diarrhea, melena, nausea or vomiting Genitourinary Genitourinary ED: Denies dysuria, hematuria or urinary frequency Musculoskeletal Musculoskeletal: Denies arthralgias, back pain, myalgias or neck pain Integumentary Denies rash Neurologic Neurologic: Reports weakness; Denies headache(s) or paresthesias Endocrine Endocrinology: Denies polydipsia, polyphagia or polyuria Hematologic/Lymphatic Hematologic/Lymphatic: Denies anemia, easy bleeding or easy bruising Allergic/Immunologic Allergic/Immunologic ED: Denies mouth swelling or urticaria EXAM Physical Exam Const Vital Signs: 12/23/20 14:51 12/23/20 15:32 12/23/20 15:43 Temperature 98.6 F Temperature Source Temporal Pulse Rate 87 Pulse Rate [Lying] 79 Pulse Rate [Sitting] 88 Pulse Rate [Standing] 76 Respiratory Rate 16 Respiratory Effort Normal Respiratory Pattern Normal Blood Pressure 149/98 H Blood Pressure [Lying] 122/94 H Blood Pressure [Sitting] 131/75 H Blood Pressure [Standing] 121/84 H Blood Pressure Mean 115 Blood Pressure Mean [Lying] 103 Blood Pressure Mean [Sitting] 93 Blood Pressure Mean [Standing] 96 Pulse Ox 98 Oxygen Delivery Method Room Air Positive well nourished, well developed and obese General Appearance ED: well developed and NAD; Negative for cyanotic, diaphoretic or pallor Nutritional Appearance: obese HEENT HEENT Narrative: Head is atraumatic normocephalic. Ears normal. TMs normal. Nares patent. Posterior pharynx out erythema exudate. Uvula midline. Eyes PERRL and EOMs intact bilaterally Eyes Narrative: There is no nystagmus with central gaze or lateral gaze. General Eye ED: Negative for pale conjunctiva or scleral icterus Neck no lymphadenopathy, supple and no JVD Chest Wall palpation of chest normal Resp normal respiratory effort and clear to auscultation bilaterally Cardio regular rate, regular rhythm, S1 normal heart sound, S2 normal heart sound and no murmurs GI normal to inspection, nondistended, normoactive bowel sounds, non-tender and non-distended; Negative for hepatosplenomegaly Palpation: soft Back/Spine no CVA tenderness Cervical Spine: Negative for cervical spine tenderness Thoracic Spine / Upper Back: Negative for thoracic spinal tenderness or paraspinal muscle tenderness Extremity normal to inspection General Extremety ED: Negative for edema or tenderness General Extremity: Negative for edema Neuro oriented x3, CN's II-XII intact bilaterally and no sensory deficits noted Neuro Narrative: DTR 1+ symmetric upper and lower extremity. There is no clonus or Babinski sign. There is no dysmetria. The eye askew test was negative. The hint test was negative. Sensorium / Orientation: alert Motor Exam: strength 5/5 throughout Psych mental status grossly normal Skin no rashes or lesions noted, no wounds and skin turgor normal General Skin Exam: Negative for jaundice or pallor MDM MDM MDM Narrative Medical decision making narrative: Patient had transient episode of lightheadedness which is her definition of dizziness. Will obtain CBC to assess for anemia. Basic metabolic panel to assess for elevated BUN and creatinine ratio since she denies black or maroon-colored stool to rule out GI bleed. Orthostatic vital signs were ordered. Her neuro exam is normal. Presently I am unable to reproduce her symptoms. This could represent benign positional vertigo. Lab Data Attestation: I reviewed the patient's lab results. Lab results narrative: Blood sugar is elevated 147. There is a family history of diabetes. Patient's had prior elevated blood sugar readings. She was instructed to follow-up with her doctor for formal testing. She was informed the cause of her dizziness is uncertain. This may represent benign positional vertigo. Labs: Laboratory Results - last 24 hr 12/23/20 12/23/20 15:38 15:38 WBC 7.3 RBC 4.64 Hgb 14.1 Hct 42.3 MCV 91.2 MCH 30.4 MCHC 33.3 RDW Std Deviation 50.1 H RDW Coeff of [place] 15.0 H Plt Count 181 MPV 10.7 Immature Gran % (Auto) 0.100 Neut % (Auto) 56.7 Lymph % (Auto) 29.3 [place] % (Auto) 9.9 Eos % (Auto) 3.0 Baso % (Auto) 1.0 Absolute Neuts (auto) 4.1 Absolute Lymphs (auto) 2.13 Nucleated RBC % 0 Sodium 138 Potassium 3.6 Chloride 106 Carbon Dioxide 24.0 Anion Gap 8 BUN 9 Creatinine 0.75 Estim Creat Clear Calc 63.95 Est GFR (MDRD) Af Amer 103 Est GFR (MDRD) Non-Af 85 BUN/Creatinine Ratio 12.0 Glucose 147 H Calcium 9.0 Discharge Plan Triage Chief Complaint: Dizziness ED Provider: Trenton Schmid Dx/Rx/DC Orders Clinical Impression: Episodic lightheadedness, Hyperglycemia Instructions: ED Dizziness, Uncertain Cause, ED Hyperglycemia New Susp Diabetes Prescriptions: No Action hydroxyzine pamoate 25 MG capsule 25 mg PO BID PRN (Reason: Anxiety) RF: 0 pantoprazole 40 mg Tablet,Delayed Release (Dr/Ec) 40 mg PO BID RF: 0 buspirone 10 mg Tablet 10 mg PO BID RF: 0 [facility] [facility] [Primary Care Provider] - 1-2 Weeks Disposition Disposition: Home, Self Care
[2020-12-23 16:27] VITALS: BP 128/85; PULSE 75; RESP 17; O2SAT 98
== END 2020-12-23 16:29 | disposition home or self-care (01) ==
PROVIDERS: Emergency Provider Emergency Medicine
DX: R42 Dizziness and giddiness (principal); R73.9 Hyperglycemia, unspecified; I10 Essential (primary) hypertension; F41.9 Anxiety disorder, unspecified; E66.9 Obesity, unspecified; Z68.24 Body mass index [BMI] 24.0-24.9, adult; Z79.899 Other long term (current) drug therapy; Z83.3 Family history of diabetes mellitus
CPT/HCPCS: 80048; 85025; 99284